=== PATIENT | male | born 1990 | race Two or more races ===

== ENCOUNTER 2023-07-26 16:24 | Emergency (ER) | payer OTHER ==
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
[2023-07-26] MEDS: HYDROcod/ACETAM 5/325 MG TABLET PO STA (17:15)
[2023-07-26] MEDS: NAPROXEN 250 MG TABLET PO STA (17:16)
--- NOTE | 2023-07-26 17:40 | CT Report ---
PROCEDURE: Maxillofacial WO INDICATIONS: facial injury with swelling/pain left side TECHNIQUE: Noncontrast 1.5 mm thick axial images acquired from the mandible through the frontal sinuses, with co sheeba and sagittal reformatting. 3-D reformatted images were performed. For radiation dose reduct ion, the following was used: automated exposure control, adjustment of mA and/or kV according to pat ient size. COMPARISON: Correlation is made with the accompanying imaging. FINDINGS: Image quality: Excellent. Bones and teeth: Orbital beasley are intact. Sinus beasley show no fracture or deformity. Nasal bones and septum are intact. Visualized portions of the mandible demonstrate no fractures or subluxation. Zygomatic arches are intact. Pterygoid plates are intact. Visualized portions of the skull base an d auditory canals are intact. Sinuses: Mild to moderate mucosal thickening can be seen within the inferior right maxillary sinus. Paranasal sinuses are otherwise well aerated, without fluid levels, mucosal thickening, or mucoceles. The ostiomeatal complexes are patent, yet they are constitutionally narrowed, with bilateral Renaldo cells. Mastoid air cells are aerated. Soft tissues: There is soft tissue swelling seen involving the left side of the face. No soft tissue gas can be seen. No radiopaque foreign bodies are seen. Vascular: Visualized vascular structures appear normal in the absence of contrast. Bony vascular fo ramina and canals are intact. IMPRESSION: Soft tissue swelling is seen involving the left side of face, without associated fractures seen. Reviewed by: Guicho Wilkerson MD on 07/26/2023 4:39 PM [facility] Approved by: Guicho Wilkerson MD on 07/26/2023 4:39 PM NCSILVINA Station ID: [id number]
--- NOTE | 2023-07-26 17:41 | CT Report ---
PROCEDURE: Head WO INDICATIONS: Head injury few days ago; persistent MUNSON TECHNIQUE: Noncontrast 4.5 mm thick angled axial sections acquired from the foramen magnum to the vertex. For r adiation dose reduction, the following was used: automated exposure control, adjustment of mA and/or kV according to patient size. COMPARISON: Correlation is made with the accompanying imaging. FINDINGS: Image quality: Excellent. CSF spaces: Basal cisterns are patent. No extra-axial fluid collections. Ventricles are normal in size and shape. Brain: No midline shift. No intracranial masses or hemorrhage. Merino-white matter interface is norm al. Skull and face: Mild soft tissue swelling seen involving the left-sided face, yet without a displace d fracture. Calvarium and visualized facial bones are intact, without suspicious lesions. Sinuses: Visualized sinuses and mastoids are clear. IMPRESSION: Mild left-sided soft tissue facial swelling, without an associated fracture seen. No intracranial hemorrhage is seen. No acute intracranial pathology. Reviewed by: Guicho Wilkerson MD on 07/26/2023 4:40 PM [facility] Approved by: Guicho Wilkerson MD on 07/26/2023 4:40 PM [facility] Station ID: [id number]
--- NOTE | 2023-07-26 17:41 | XRAY Report ---
PROCEDURE: Ribs w/PA Chest 3+V LT INDICATIONS: left anterolat ribs pain approx 5-8 area TECHNIQUE: 2 views of the ribs were acquired, along with a single view chest. COMPARISON: Correlation is made with the accompanying imaging. FINDINGS: Surgical changes and devices: None. Bones and chest wall: A marker is placed upon the area of pain. At this site, no fractures are seen. No fractures or dislocations are seen elsewhere. No suspicious bony lesions. The overlying soft t issues appear unremarkable. Lungs and pleura: No pleural effusions or pneumothorax. Lungs appear clear. Mediastinum: Mediastinal contours appear normal. Heart size is normal. IMPRESSION: No displaced rib fracture or pneumothorax. If there is strong clinical concern for a post traumatic abnormality that is not seen on this plain f ilm study, then please consider a dedicated chest CT with IV contrast for further evaluation. Reviewed by: Guicho Wilkerson MD on 07/26/2023 4:40 PM [facility] Approved by: Guicho Wilkerson MD on 07/26/2023 4:40 PM [facility] Station ID: [id number]
--- NOTE | 2023-07-26 17:42 | XRAY Report ---
PROCEDURE: Finger(s) LT INDICATIONS: thumb base pain after fall TECHNIQUE: AP hand, 2 views of the first finger(s) acquired. COMPARISON: Correlation is made with the accompanying imaging. FINDINGS: Bones: In this patient with this given history, scrutiny is given to the left lung base. No fractures or dislocations can be seen at this site. No fractures or dislocations are seen elsewhere. No suspicious bony lesions. Soft tissues: No suspicious soft tissue calcifications or masses. IMPRESSION: No acute bony abnormality can be seen by plain film. Reviewed by: Guicho Wilkerson MD on 07/26/2023 4:41 PM [facility] Approved by: Guicho Wilkerson MD on 07/26/2023 4:41 PM [facility] Station ID: [id number]
[2023-07-26 17:43] VITALS: O2SAT 97
[2023-07-26] MEDS: HYDROcod/ACET 5/325 Prepack 4 PO STA (18:16)
[2023-07-26 18:21] VITALS: BP 144/62
== END 2023-07-26 18:26 | disposition home or self-care (01) ==
LOC: ED 16:24
DX: S06.0X1A Concussion with loss of consciousness of 30 minutes or less, initial encounter (principal); S63.602A Unspecified sprain of left thumb, initial encounter; S20.212A Contusion of left front wall of thorax, initial encounter; S00.83XA Contusion of other part of head, initial encounter; V00.841A Fall from standing electric scooter, initial encounter; Y93.89 Activity, other specified
CPT/HCPCS: 70450; 70486; 71101; 73140; 99284; A9270